=== PATIENT | male | born 1970 | race Asian ===

== ENCOUNTER → 2016-11-03 | Outpatient (CLI) | payer OTHER ==
--- NOTE | 2016-11-03 18:46 | DIAGNOSTIC IMAGING REPORT ---
CHEST 2 VIEWS ROUTINE HISTORY: Shortness of breath. COMPARISON: None. FINDINGS: The lungs are clear. Cardiac silhouette is normal in size. No pleural effusions. No pneumothorax. IMPRESSION: No acute process. Electronically signed by: Jesús Kapoor M.D. 11/03/2016 6:45 PM Dictated Date/Time: 11/03/2016 6:44 PM
[2016-11-03 18:50] LABS: BASO % 0.5 %; BASO ABS # 0.05 K/uL (0-0.2); COMPLETE YES; EOS % 3.1 %; HEMATOCRIT 42.2 % (42-52); IG% 0.3 %; LYMPH % 21.5 %; LYMPH ABS # 2.21 K/uL (1.2-3.4); MEAN CELL VOLUME 91.1 fL (80-100); MEAN CORPUSCULAR HEMOGLOBIN 32.2 pg (25-34); MEAN CORPUSCULAR HGB CONC 35.3 g/dl (32-36); MEAN PLATELET VOLUME 9.4 fL (7.4-10.4); MONO % 5.8 %; NEUT % 68.8 %; PLATELET COUNT 214 K/uL (130-400); RED BLOOD COUNT 4.63 M/uL (4.7-6.1); WHITE BLOOD COUNT 10.26 K/uL (4.8-10.8)
[2016-11-03 19:11] LABS: ALT/SGPT 32 U/L (12-78); AST/SGOT 23 U/L (15-37); BLOOD UREA NITROGEN 13 mg/dl (7-18); BUN/CREATININE RATIO 14.8 (10-20); CALCIUM 9.1 mg/dl (8.5-10.1); CARBON DIOXIDE 30 mmol/L (21-32); CHLORIDE 105 mmol/L (98-107); CHOLESTEROL 153 mg/dl (0-200); GLUCOSE 120 mg/dl (70-99); POTASSIUM 4.3 mmol/L (3.5-5.1); SODIUM 141 mmol/L (136-145); TRIGLYCERIDES 113 mg/dl (0-150); VERY LOW DENSITY LIPOPROT CALC 23 mg/dl
[2016-11-03 19:21] LABS: ALKALINE PHOSPHATASE 97 U/L (45-117); CHOLESTEROL/HDL RATIO 3.9; HDL CHOLESTEROL 39 mg/dl; LDL CHOLESTEROL CALCULATED 91 mg/dl; PROSTATE SPECIFIC ANTIGEN 0.745 ng/ml (0.000-4.000); THYROID STIMULATING HORMONE 0.829 uIu/ml (0.300-4.500)
== END | disposition home or self-care (01) ==
LOC: C.RAD 17:54
PROVIDERS: ATTEND Nurse Practitioner Adult Health
DX: R06.02 Shortness of breath (principal); R53.83 Other fatigue; Z12.5 Encounter for screening for malignant neoplasm of prostate

== ENCOUNTER → 2017-10-21 | Outpatient (CLI) | payer OTHER ==
--- NOTE | 2017-10-21 11:43 | DIAGNOSTIC IMAGING REPORT ---
CHEST 2 VIEWS ROUTINE HISTORY: Short of breath. COMPARISON: Chest 11/03/2016. FINDINGS: The lungs are clear. Cardiac silhouette is normal in size. No pleural effusions. No pneumothorax. IMPRESSION: No acute process. Electronically signed by: Jesús Kapoor M.D. 10/21/2017 11:42 AM Dictated Date/Time: 10/21/2017 11:41 AM
[2017-10-21 12:21] LABS: BASO % 0.6 %; BASO ABS # 0.05 K/uL (0-0.2); EOS % 4.8 %; EOS ABS # 0.41 K/uL (0-0.5); HEMATOCRIT 43.1 % (42-52); HEMOGLOBIN 15.1 g/dL (14.0-18.0); IG# 0.01 K/uL (0.00-0.02); LYMPH % 24.3 %; LYMPH ABS # 2.06 K/uL (1.2-3.4); MEAN CELL VOLUME 93.1 fL (80-100); MEAN CORPUSCULAR HEMOGLOBIN 32.6 pg (25-34); MEAN PLATELET VOLUME 9.1 fL (7.4-10.4); MONO % 7.7 %; MONO ABS # 0.65 K/uL (0.11-0.59); NEUT % 62.5 %; NEUT ABS # 5.31 K/uL (1.4-6.5); PLATELET COUNT 194 K/uL (130-400); RED CELL DISTRIBUTION WIDTH CV 12.6 % (11.5-14.5); RED CELL DISTRIBUTION WIDTH SD 42.8 fL (36.4-46.3); WHITE BLOOD COUNT 8.49 K/uL (4.8-10.8)
[2017-10-21 14:22] LABS: ALBUMIN 3.7 gm/dl (3.4-5.0); ALT/SGPT 27 U/L (12-78); BLOOD UREA NITROGEN 10 mg/dl (7-18); CALCIUM 8.6 mg/dl (8.5-10.1); CARBON DIOXIDE 29 mmol/L (21-32); CHOLESTEROL 162 mg/dl (0-200); CREATININE 0.86 mg/dl (0.60-1.40); GLUCOSE 81 mg/dl (70-99); SODIUM 140 mmol/L (136-145)
[2017-10-21 14:25] LABS: ALKALINE PHOSPHATASE 89 U/L (45-117); AST/SGOT 17 U/L (15-37); LDL CHOLESTEROL CALCULATED 107 mg/dl
[2017-10-25 10:50] LABS: QUANTIF MITOGEN-NIL 9.34 IU/ML; QUANTIFERON NEGATIVE (NEGATIVE); QUANTIFERON NIL 0.02 IU/ML
== END | disposition home or self-care (01) ==
LOC: C.RAD 10:47
PROVIDERS: ATTEND Nurse Practitioner Family
DX: E55.9 Vitamin D deficiency, unspecified (principal); E78.1 Pure hyperglyceridemia; K62.5 Hemorrhage of anus and rectum; R06.02 Shortness of breath; R80.9 Proteinuria, unspecified; R76.11 Nonspecific reaction to tuberculin skin test without active tuberculosis